=== PATIENT | male | born 1935 | race Caucasian/White ===

== ENCOUNTER 2018-12-31 16:20 | Inpatient (IN) | payer OTHER ==
[~2018-12-31] VITALS: Ht 154.9 cm; Wt 42.6 kg
[2018-12-31 16:30] VITALS: BP_SYST 123
[2018-12-31] MEDS ORDERED: SER25 PO (16:52)
[2018-12-31] MEDS ORDERED: MEMA10TA PO (16:52)
[2018-12-31] MEDS ORDERED: DIVA500T2 PO (16:52)
[2018-12-31] MEDS ORDERED: NACL 0.9% 1,000 ML IV ONE (17:04)
[2018-12-31 17:57] LABS: BASOPHILS # (AUTO) 0.1 K/uL (0.0-0.2); BASOPHILS % (AUTO) 1.5 % (0.0-2.0); EOSINOPHILS # (AUTO) 0.1 K/uL (0.0-0.4); EOSINOPHILS % (AUTO) 1.8 % (0.0-4.0); HEMATOCRIT 30.3 % (36-54); HEMOGLOBIN 9.9 g/dL (14.0-18.0); LYMPHOCYTES # (AUTO) 1.1 K/uL (1.0-5.5); LYMPHOCYTES % (AUTO) 29.7 % (20.5-51.5); MEAN CORPUSCULAR HEMOGLOBIN 31 pg (27-31); MEAN CORPUSCULAR HGB CONC 33 % (32-36); MEAN CORPUSCULAR VOLUME 95 fL (79.0-98.0); MONOCYTES # (AUTO) 0.3 K/uL (0.0-1.0); MONOCYTES % (AUTO) 7.9 % (1.7-9.3); NEUTROPHILS # (AUTO) 2.1 K/uL (1.8-7.7); NEUTROPHILS % (AUTO) 59.1 % (40.0-70.0); PLATELET COUNT (AUTO) 157 K/uL (130-430); RED BLOOD CELL COUNT(AUTO) 3.18 MIL/uL (4.2-6.2); RED CELL DISTRIBUTION WIDTH 20.7 % (9.0-15.0); WHITE BLOOD COUNT (AUTO) 3.6 K/uL (4.8-10.8)
[2018-12-31 18:05] LABS: ANION GAP 9 (5-15); CALCIUM 8.1 mg/dL (8.4-11.0); CHLORIDE 113 mmol/L (98-107); GLUCOSE 110 mg/dL (70-99); POTASSIUM 3.4 mmol/L (3.5-5.1); SODIUM SERUM 150 mmol/L (136-145); UREA NITROGEN, BLOOD 23 mg/dL (8-21)
[2018-12-31 18:12] LABS: ALBUMIN 2.9 g/dL (3.4-4.8); ASPARTATE AMINOTRANSFERASE 13 U/L (10-37); TOTAL BILIRUBIN 0.4 mg/dL (0.0-1.0)
[2018-12-31 18:37] LABS: ALANINE AMINOTRANSFERASE 6 U/L (12-78)
[2018-12-31 18:42] LABS: BILIRUBIN,URINE NEGATIVE (NEGATIVE); BLOOD, URINE NEGATIVE (NEGATIVE); CLARITY/URINE CLEAR (CLEAR); COLOR,URINE YELLOW (YELLOW); GLUCOSE,URINE NEGATIVE (NEGATIVE); KETONES,URINE TRACE (NEGATIVE); LEUKOCYTE ESTERASE ,URINE NEGATIVE (NEGATIVE); NITRITE, URINE NEGATIVE (NEGATIVE); PROTEIN URINE NEGATIVE (NEGATIVE)
[2018-12-31] MEDS: 0.45% NACL 1,000 ML IV SCH (20:43)
[2018-12-31 22:19] VITALS: BP_SYST 155
[2019-01-01 00:36] VITALS: BP_SYST 151
[2019-01-01] MEDS: 0.45% NACL 1,000 ML IV SCH ×3 (03:31→18:48)
[2019-01-01 06:31] LABS: BASOPHILS % (AUTO) 0.9 % (0.0-2.0); EOSINOPHILS # (AUTO) 0.1 K/uL (0.0-0.4); EOSINOPHILS % (AUTO) 1.1 % (0.0-4.0); HEMATOCRIT 29.5 % (36-54); HEMOGLOBIN 9.7 g/dL (14.0-18.0); LYMPHOCYTES # (AUTO) 1.5 K/uL (1.0-5.5); LYMPHOCYTES % (AUTO) 31.1 % (20.5-51.5); MEAN CORPUSCULAR HEMOGLOBIN 31 pg (27-31); MEAN CORPUSCULAR HGB CONC 33 % (32-36); MEAN CORPUSCULAR VOLUME 95 fL (79.0-98.0); MONOCYTES # (AUTO) 0.3 K/uL (0.0-1.0); NEUTROPHILS # (AUTO) 2.9 K/uL (1.8-7.7); NEUTROPHILS % (AUTO) 59.9 % (40.0-70.0); PLATELET COUNT (AUTO) 161 K/uL (130-430); RED CELL DISTRIBUTION WIDTH 20.6 % (9.0-15.0)
[2019-01-01 06:43] LABS: ANION GAP 9 (5-15); CALCIUM 7.7 mg/dL (8.4-11.0); CHLORIDE 111 mmol/L (98-107); CREATININE 0.72 mg/dL (0.55-1.30); GLUCOSE 81 mg/dL (70-99); POTASSIUM 3.5 mmol/L (3.5-5.1); SODIUM SERUM 146 mmol/L (136-145); UREA NITROGEN, BLOOD 21 mg/dL (8-21)
[2019-01-01 07:50] LABS: WHITE BLOOD COUNT (AUTO) 4.8 K/uL (4.8-10.8)
[2019-01-01 08:00] VITALS: BP_SYST 131
[2019-01-01 12:00] VITALS: BP_SYST 147
[2019-01-01] MEDS ORDERED: DILTIAZEM HCL 25 MG/5 ML VIAL IVP ONE (13:00)
[2019-01-01] MEDS ORDERED: DILTIAZEM HCL 30 MG TABLET PO ONE (14:45)
[2019-01-01 16:07] VITALS: BP_SYST 160
[2019-01-01] MEDS ORDERED: VANCOMYCIN HCL 1,000 MG in NS 250 ML IV SCH (18:00)
[2019-01-01 20:31] VITALS: BP_SYST 141
[2019-01-01] MEDS: APIXABAN 2.5 MG TABLET PO SCH (20:38)
[2019-01-01] MEDS ORDERED: VANCOMYCIN HCL 1000 MG/VIAL IV ONE (20:58)
[2019-01-01] MEDS ORDERED: PIPERACILLIN/TAZOBACTAM 3.375 GM/VIAL (ZOSYN) IV ONE (21:45)
[2019-01-01] MEDS: DILTIAZEM HCL 30 MG TABLET PO SCH (21:46)
[2019-01-01] MEDS: PIPERACILLIN/TAZO 3.375/DEX-IS 50 ML IV SCH (21:48)
[2019-01-02 00:29] VITALS: BP_SYST 163
[2019-01-02] MEDS: PIPERACILLIN/TAZO 3.375/DEX-IS 50 ML IV SCH ×3 (05:44→20:08)
[2019-01-02 05:50] VITALS: BP_SYST 154
[2019-01-02] MEDS: DILTIAZEM HCL 30 MG TABLET PO SCH ×3 (05:52→20:06)
[2019-01-02] MEDS: 0.45% NACL 1,000 ML IV SCH ×2 (05:55→20:14)
[2019-01-02 07:04] LABS: ANION GAP 9 (5-15); CALCIUM 7.6 mg/dL (8.4-11.0); CHLORIDE 108 mmol/L (98-107); CREATININE 0.84 mg/dL (0.55-1.30); GLUCOSE 83 mg/dL (70-99); POTASSIUM 3.8 mmol/L (3.5-5.1); SODIUM SERUM 142 mmol/L (136-145); UREA NITROGEN, BLOOD 24 mg/dL (8-21)
[2019-01-02 07:08] LABS: BASOPHILS % (AUTO) 0.6 % (0.0-2.0); EOSINOPHILS % (AUTO) 0.7 % (0.0-4.0); LYMPHOCYTES # (AUTO) 1.4 K/uL (1.0-5.5); LYMPHOCYTES % (AUTO) 27.5 % (20.5-51.5); MEAN CORPUSCULAR HEMOGLOBIN 32 pg (27-31); MEAN CORPUSCULAR HGB CONC 33 % (32-36); MEAN CORPUSCULAR VOLUME 95 fL (79.0-98.0); MONOCYTES # (AUTO) 0.5 K/uL (0.0-1.0); MONOCYTES % (AUTO) 8.9 % (1.7-9.3); NEUTROPHILS # (AUTO) 3.2 K/uL (1.8-7.7); NEUTROPHILS % (AUTO) 62.3 % (40.0-70.0); PLATELET COUNT (AUTO) 169 K/uL (130-430); RED BLOOD CELL COUNT(AUTO) 2.82 MIL/uL (4.2-6.2); RED CELL DISTRIBUTION WIDTH 20.3 % (9.0-15.0); WHITE BLOOD COUNT (AUTO) 5.1 K/uL (4.8-10.8)
[2019-01-02 07:41] VITALS: BP_SYST 135
[2019-01-02] MEDS: APIXABAN 2.5 MG TABLET PO SCH ×2 (09:15→20:07)
[2019-01-02 13:07] VITALS: BP_SYST 137
[2019-01-02 17:29] VITALS: BP_SYST 147
[2019-01-02 20:00] VITALS: BP_SYST 127
[2019-01-02] MEDS: EMOLLIENT COMBINATION NO.73 78 GM CREAM..G. TP SCH (20:14)
[2019-01-02] MEDS ORDERED: AMMONIUM LACTATE 12%, 400 ML LOTION TP SCH (21:00)
[2019-01-03 00:09] VITALS: BP_SYST 134
[2019-01-03 05:00] VITALS: BP_SYST 129
[2019-01-03] MEDS: DILTIAZEM HCL 30 MG TABLET PO SCH ×2 (05:35→13:44)
[2019-01-03] MEDS: PIPERACILLIN/TAZO 3.375/DEX-IS 50 ML IV SCH ×3 (05:36→21:33)
[2019-01-03 05:53] LABS: ALANINE AMINOTRANSFERASE 114 U/L (12-78); ALBUMIN 2.6 g/dL (3.4-4.8); ANION GAP 8 (5-15); ASPARTATE AMINOTRANSFERASE 187 U/L (10-37); CALCIUM 7.5 mg/dL (8.4-11.0); CHLORIDE 106 mmol/L (98-107); CREATININE 0.82 mg/dL (0.55-1.30); GLUCOSE 78 mg/dL (70-99); POTASSIUM 3.9 mmol/L (3.5-5.1); SODIUM SERUM 138 mmol/L (136-145); TOTAL BILIRUBIN 0.8 mg/dL (0.0-1.0); UREA NITROGEN, BLOOD 21 mg/dL (8-21)
[2019-01-03 06:17] LABS: BASOPHILS % (AUTO) 0.8 % (0.0-2.0); EOSINOPHILS % (AUTO) 0.6 % (0.0-4.0); HEMATOCRIT 27.7 % (36-54); HEMOGLOBIN 9.1 g/dL (14.0-18.0); LYMPHOCYTES # (AUTO) 1.7 K/uL (1.0-5.5); LYMPHOCYTES % (AUTO) 29.5 % (20.5-51.5); MEAN CORPUSCULAR HEMOGLOBIN 31 pg (27-31); MEAN CORPUSCULAR HGB CONC 33 % (32-36); MEAN CORPUSCULAR VOLUME 95 fL (79.0-98.0); MONOCYTES # (AUTO) 0.7 K/uL (0.0-1.0); MONOCYTES % (AUTO) 11.7 % (1.7-9.3); NEUTROPHILS # (AUTO) 3.3 K/uL (1.8-7.7); NEUTROPHILS % (AUTO) 57.4 % (40.0-70.0); PLATELET COUNT (AUTO) 157 K/uL (130-430); RED BLOOD CELL COUNT(AUTO) 2.92 MIL/uL (4.2-6.2); RED CELL DISTRIBUTION WIDTH 20.2 % (9.0-15.0); WHITE BLOOD COUNT (AUTO) 5.8 K/uL (4.8-10.8)
[2019-01-03 08:10] VITALS: BP_SYST 150
[2019-01-03] MEDS: VANCOMYCIN HCL 1,000 MG in NS 250 ML IV SCH (09:09)
[2019-01-03] MEDS: EMOLLIENT COMBINATION NO.73 78 GM CREAM..G. TP SCH ×2 (09:11→21:28)
[2019-01-03] MEDS: APIXABAN 2.5 MG TABLET PO SCH (09:13)
[2019-01-03] MEDS ORDERED: FUROSEMIDE 40 MG/4 ML VIAL IVP ONE (11:45)
[2019-01-03 13:03] VITALS: BP_SYST 136
[2019-01-03 16:38] VITALS: BP_SYST 157
[2019-01-03] MEDS: 0.45% NACL 1,000 ML IV SCH (17:23)
[2019-01-03 20:00] VITALS: BP_SYST 139
[2019-01-03] MEDS ORDERED: DILTIAZEM HCL 25 MG/5 ML VIAL IVP ONE (20:00)
[2019-01-03] MEDS ORDERED: DILTIAZEM HCL 25 MG/5 ML VIAL IVP PRN (21:45)
[2019-01-03] MEDS: ENOXAPARIN SODIUM 40 MG/0.4 ML SYRINGE SUBCUT SCH (23:01)
[2019-01-04 00:48] VITALS: BP_SYST 160
[2019-01-04] MEDS: PIPERACILLIN/TAZO 3.375/DEX-IS 50 ML IV SCH ×3 (05:44→23:05)
[2019-01-04 06:30] LABS: BASOPHILS # (AUTO) 0.1 K/uL (0.0-0.2); EOSINOPHILS % (AUTO) 0.9 % (0.0-4.0); HEMATOCRIT 31.5 % (36-54); HEMOGLOBIN 10.5 g/dL (14.0-18.0); LYMPHOCYTES # (AUTO) 1.3 K/uL (1.0-5.5); MEAN CORPUSCULAR HEMOGLOBIN 32 pg (27-31); MEAN CORPUSCULAR HGB CONC 33 % (32-36); MEAN CORPUSCULAR VOLUME 94 fL (79.0-98.0); MONOCYTES # (AUTO) 0.7 K/uL (0.0-1.0); MONOCYTES % (AUTO) 12.9 % (1.7-9.3); NEUTROPHILS # (AUTO) 3.3 K/uL (1.8-7.7); NEUTROPHILS % (AUTO) 61.2 % (40.0-70.0); PLATELET COUNT (AUTO) 155 K/uL (130-430); RED BLOOD CELL COUNT(AUTO) 3.34 MIL/uL (4.2-6.2); RED CELL DISTRIBUTION WIDTH 20.5 % (9.0-15.0); WHITE BLOOD COUNT (AUTO) 5.4 K/uL (4.8-10.8)
[2019-01-04 06:50] LABS: ANION GAP 14 (5-15); CALCIUM 7.8 mg/dL (8.4-11.0); CHLORIDE 105 mmol/L (98-107); CREATININE 0.77 mg/dL (0.55-1.30); GLUCOSE 72 mg/dL (70-99); POTASSIUM 3.4 mmol/L (3.5-5.1); SODIUM SERUM 142 mmol/L (136-145); UREA NITROGEN, BLOOD 22 mg/dL (8-21)
[2019-01-04 07:45] VITALS: BP_SYST 132
[2019-01-04] MEDS: FUROSEMIDE 40 MG/4 ML VIAL IVP SCH (09:42)
[2019-01-04] MEDS: EMOLLIENT COMBINATION NO.73 78 GM CREAM..G. TP SCH ×2 (10:44→21:00)
[2019-01-04 11:33] VITALS: BP_SYST 119
[2019-01-04] MEDS: 0.45% NACL 1,000 ML IV SCH (13:54)
[2019-01-04 15:54] VITALS: BP_SYST 138
[2019-01-04 20:00] VITALS: BP_SYST 129
[2019-01-04] MEDS: VANCOMYCIN HCL 1,000 MG in NS 250 ML IV SCH (20:55)
[2019-01-04] MEDS: QUEtiapine FUMARATE 25 MG TABLET PO SCH (21:34)
[2019-01-04] MEDS: ENOXAPARIN SODIUM 40 MG/0.4 ML SYRINGE SUBCUT SCH (21:35)
[2019-01-05] VITALS: BP_SYST 130
[2019-01-05] MEDS: PIPERACILLIN/TAZO 3.375/DEX-IS 50 ML IV SCH ×3 (05:39→21:11)
[2019-01-05 06:19] LABS: BASOPHILS % (AUTO) 0.4 % (0.0-2.0); EOSINOPHILS # (AUTO) 0.1 K/uL (0.0-0.4); EOSINOPHILS % (AUTO) 1.2 % (0.0-4.0); LYMPHOCYTES # (AUTO) 1.1 K/uL (1.0-5.5); LYMPHOCYTES % (AUTO) 21.5 % (20.5-51.5); MEAN CORPUSCULAR HEMOGLOBIN 31 pg (27-31); MEAN CORPUSCULAR HGB CONC 34 % (32-36); MEAN CORPUSCULAR VOLUME 93 fL (79.0-98.0); MONOCYTES # (AUTO) 0.6 K/uL (0.0-1.0); MONOCYTES % (AUTO) 12.7 % (1.7-9.3); NEUTROPHILS # (AUTO) 3.2 K/uL (1.8-7.7); NEUTROPHILS % (AUTO) 64.2 % (40.0-70.0); PLATELET COUNT (AUTO) 165 K/uL (130-430); RED BLOOD CELL COUNT(AUTO) 3.21 MIL/uL (4.2-6.2); RED CELL DISTRIBUTION WIDTH 20.2 % (9.0-15.0); WHITE BLOOD COUNT (AUTO) 4.9 K/uL (4.8-10.8)
[2019-01-05 06:22] LABS: ANION GAP 11 (5-15); CALCIUM 7.4 mg/dL (8.4-11.0); CHLORIDE 104 mmol/L (98-107); CREATININE 0.82 mg/dL (0.55-1.30); GLUCOSE 71 mg/dL (70-99); SODIUM SERUM 142 mmol/L (136-145); UREA NITROGEN, BLOOD 21 mg/dL (8-21)
[2019-01-05 08:21] VITALS: BP_SYST 130
[2019-01-05] MEDS: 0.45% NACL 1,000 ML IV SCH (08:28)
[2019-01-05] MEDS: MEMANTINE HCL 5 MG TABLET PO SCH (08:28)
[2019-01-05] MEDS: QUEtiapine FUMARATE 25 MG TABLET PO SCH ×2 (08:29→21:11)
[2019-01-05] MEDS: FUROSEMIDE 40 MG/4 ML VIAL IVP SCH (08:29)
[2019-01-05] MEDS: DIVALPROEX SODIUM 250 MG TABLET(DEPAKOTE) PO SCH ×2 (08:29→21:11)
[2019-01-05] MEDS ORDERED: DILTIAZEM HCL 25 MG/5 ML VIAL IVP PRN (08:30)
[2019-01-05] MEDS: EMOLLIENT COMBINATION NO.73 78 GM CREAM..G. TP SCH ×2 (09:54→21:21)
[2019-01-05] MEDS ORDERED: DILTIAZEM HCL 60 MG TABLET PO ONE (12:00)
[2019-01-05 12:55] VITALS: BP_SYST 119
[2019-01-05 16:30] VITALS: BP_SYST 121
[2019-01-05] MEDS: ENOXAPARIN SODIUM 40 MG/0.4 ML SYRINGE SUBCUT SCH (21:12)
[2019-01-05] MEDS: DILTIAZEM HCL 60 MG TABLET PO SCH (23:01)
[2019-01-06 00:37] VITALS: BP_SYST 110
[2019-01-06] MEDS: PIPERACILLIN/TAZO 3.375/DEX-IS 50 ML IV SCH ×3 (05:14→21:58)
[2019-01-06] MEDS: 0.45% NACL 1,000 ML IV SCH (05:14)
[2019-01-06] MEDS: DILTIAZEM HCL 60 MG TABLET PO SCH ×3 (05:15→22:00)
[2019-01-06 07:55] VITALS: BP_SYST 116
[2019-01-06] MEDS: QUEtiapine FUMARATE 25 MG TABLET PO SCH ×2 (09:59→21:58)
[2019-01-06] MEDS: MEMANTINE HCL 5 MG TABLET PO SCH (09:59)
[2019-01-06] MEDS: FUROSEMIDE 40 MG/4 ML VIAL IVP SCH (09:59)
[2019-01-06] MEDS: VANCOMYCIN HCL 1,000 MG in NS 250 ML IV SCH (09:59)
[2019-01-06] MEDS: EMOLLIENT COMBINATION NO.73 78 GM CREAM..G. TP SCH ×2 (10:00→21:00)
[2019-01-06] MEDS: DIVALPROEX SODIUM 250 MG TABLET(DEPAKOTE) PO SCH ×2 (10:00→21:59)
[2019-01-06] MEDS ORDERED: POTASSIUM CHLORIDE 10 MEQ TAB.PRT.SR PO ONE (11:15)
[2019-01-06 12:23] VITALS: BP_SYST 100
[2019-01-06 16:55] VITALS: BP_SYST 102
[2019-01-06 20:00] VITALS: BP_SYST 101
[2019-01-06] MEDS: ENOXAPARIN SODIUM 40 MG/0.4 ML SYRINGE SUBCUT SCH (22:00)
[2019-01-07] MEDS: 0.45% NACL 1,000 ML IV SCH ×2 (02:36→20:05)
[2019-01-07 02:46] VITALS: BP_SYST 122
[2019-01-07] MEDS: PIPERACILLIN/TAZO 3.375/DEX-IS 50 ML IV SCH ×3 (05:58→22:36)
[2019-01-07] MEDS: DILTIAZEM HCL 60 MG TABLET PO SCH ×3 (05:59→22:36)
[2019-01-07 06:24] LABS: BASOPHILS # (AUTO) 0.1 K/uL (0.0-0.2); BASOPHILS % (AUTO) 1.5 % (0.0-2.0); EOSINOPHILS # (AUTO) 0.1 K/uL (0.0-0.4); EOSINOPHILS % (AUTO) 2.2 % (0.0-4.0); HEMATOCRIT 27.6 % (36-54); HEMOGLOBIN 9.2 g/dL (14.0-18.0); LYMPHOCYTES # (AUTO) 1.4 K/uL (1.0-5.5); LYMPHOCYTES % (AUTO) 33.2 % (20.5-51.5); MEAN CORPUSCULAR HEMOGLOBIN 32 pg (27-31); MEAN CORPUSCULAR HGB CONC 33 % (32-36); MEAN CORPUSCULAR VOLUME 95 fL (79.0-98.0); MONOCYTES # (AUTO) 0.5 K/uL (0.0-1.0); MONOCYTES % (AUTO) 11.3 % (1.7-9.3); NEUTROPHILS # (AUTO) 2.1 K/uL (1.8-7.7); NEUTROPHILS % (AUTO) 51.8 % (40.0-70.0); PLATELET COUNT (AUTO) 161 K/uL (130-430); RED BLOOD CELL COUNT(AUTO) 2.92 MIL/uL (4.2-6.2); RED CELL DISTRIBUTION WIDTH 20.7 % (9.0-15.0); WHITE BLOOD COUNT (AUTO) 4.1 K/uL (4.8-10.8)
[2019-01-07 06:45] LABS: ALANINE AMINOTRANSFERASE 90 U/L (12-78); ALBUMIN 2.2 g/dL (3.4-4.8); ANION GAP 7 (5-15); ASPARTATE AMINOTRANSFERASE 72 U/L (10-37); CALCIUM 7.6 mg/dL (8.4-11.0); CHLORIDE 108 mmol/L (98-107); CREATININE 0.79 mg/dL (0.55-1.30); GLUCOSE 66 mg/dL (70-99); POTASSIUM 3.5 mmol/L (3.5-5.1); SODIUM SERUM 145 mmol/L (136-145); TOTAL BILIRUBIN 0.6 mg/dL (0.0-1.0); UREA NITROGEN, BLOOD 21 mg/dL (8-21)
[2019-01-07 08:00] VITALS: BP_SYST 91
[2019-01-07] MEDS: EMOLLIENT COMBINATION NO.73 78 GM CREAM..G. TP SCH ×2 (09:00→20:17)
[2019-01-07] MEDS: MEMANTINE HCL 5 MG TABLET PO SCH (10:24)
[2019-01-07] MEDS: DIVALPROEX SODIUM 250 MG TABLET(DEPAKOTE) PO SCH ×2 (10:24→20:06)
[2019-01-07] MEDS: QUEtiapine FUMARATE 25 MG TABLET PO SCH ×2 (10:24→20:06)
[2019-01-07 12:38] VITALS: BP_SYST 103
[2019-01-07 16:55] VITALS: BP_SYST 114
[2019-01-07] MEDS: FUROSEMIDE 40 MG/4 ML VIAL IVP SCH (18:28)
[2019-01-07 20:00] VITALS: BP_SYST 113
[2019-01-07] MEDS: VANCOMYCIN HCL 1,000 MG in NS 250 ML IV SCH (20:06)
[2019-01-07] MEDS: ENOXAPARIN SODIUM 40 MG/0.4 ML SYRINGE SUBCUT SCH (20:07)
[2019-01-08 01:27] VITALS: BP_SYST 141
[2019-01-08] MEDS: PIPERACILLIN/TAZO 3.375/DEX-IS 50 ML IV SCH (05:37)
[2019-01-08] MEDS: DILTIAZEM HCL 60 MG TABLET PO SCH ×3 (05:41→21:47)
[2019-01-08 07:34] LABS: ANION GAP 7 (5-15); CALCIUM 7.7 mg/dL (8.4-11.0); CHLORIDE 105 mmol/L (98-107); GLUCOSE 96 mg/dL (70-99); POTASSIUM 3.7 mmol/L (3.5-5.1); SODIUM SERUM 143 mmol/L (136-145); UREA NITROGEN, BLOOD 28 mg/dL (8-21)
[2019-01-08 07:54] LABS: HEMOGLOBIN 8.4 g/dL (14.0-18.0); MEAN CORPUSCULAR HEMOGLOBIN 32 pg (27-31); MEAN CORPUSCULAR HGB CONC 33 % (32-36); MEAN CORPUSCULAR VOLUME 95 fL (79.0-98.0); PLATELET COUNT (AUTO) 159 K/uL (130-430); RED BLOOD CELL COUNT(AUTO) 2.64 MIL/uL (4.2-6.2); RED CELL DISTRIBUTION WIDTH 20.5 % (9.0-15.0); WHITE BLOOD COUNT (AUTO) 3.8 K/uL (4.8-10.8)
[2019-01-08 08:00] VITALS: BP_SYST 95
[2019-01-08] MEDS: FUROSEMIDE 40 MG/4 ML VIAL IVP SCH (09:00)
[2019-01-08] MEDS: DIVALPROEX SODIUM 250 MG TABLET(DEPAKOTE) PO SCH ×2 (09:31→21:14)
[2019-01-08] MEDS: MEMANTINE HCL 5 MG TABLET PO SCH (09:31)
[2019-01-08] MEDS: QUEtiapine FUMARATE 25 MG TABLET PO SCH ×2 (09:31→21:13)
[2019-01-08] MEDS: EMOLLIENT COMBINATION NO.73 78 GM CREAM..G. TP SCH ×2 (09:45→21:17)
[2019-01-08 11:53] LABS: BASOPHILS % (MANUAL) 0 % (0-2); EOSINOPHILS % (MANUAL) 4 % (0-7); LYMPHOCYTES % (MANUAL) 27 % (20-46); MONOCYTES % (MANUAL) 16 % (0-11)
[2019-01-08 12:53] VITALS: BP_SYST 99
[2019-01-08] MEDS: 0.45% NACL 1,000 ML IV SCH (16:29)
[2019-01-08 16:55] VITALS: BP_SYST 115
[2019-01-08 20:44] VITALS: BP_SYST 109
[2019-01-08] MEDS ORDERED: VANCOMYCIN HCL 1,000 MG in NS 250 ML IV SCH (21:00)
[2019-01-08] MEDS: ENOXAPARIN SODIUM 40 MG/0.4 ML SYRINGE SUBCUT SCH (21:11)
[2019-01-08] MEDS: MIDODRINE HCL 5 MG TABLET (PROAMATINE) PO SCH (21:17)
[2019-01-09] VITALS: BP_SYST 101
[2019-01-09] MEDS: DILTIAZEM HCL 60 MG TABLET PO SCH ×2 (06:32→14:00)
[2019-01-09 07:07] LABS: BASOPHILS % (AUTO) 1.4 % (0.0-2.0); EOSINOPHILS # (AUTO) 0.1 K/uL (0.0-0.4); EOSINOPHILS % (AUTO) 3.2 % (0.0-4.0); HEMATOCRIT 25.8 % (36-54); HEMOGLOBIN 8.6 g/dL (14.0-18.0); LYMPHOCYTES # (AUTO) 1.1 K/uL (1.0-5.5); MEAN CORPUSCULAR HEMOGLOBIN 31 pg (27-31); MEAN CORPUSCULAR HGB CONC 33 % (32-36); MEAN CORPUSCULAR VOLUME 95 fL (79.0-98.0); MONOCYTES # (AUTO) 0.3 K/uL (0.0-1.0); MONOCYTES % (AUTO) 9.5 % (1.7-9.3); NEUTROPHILS # (AUTO) 1.9 K/uL (1.8-7.7); NEUTROPHILS % (AUTO) 54.9 % (40.0-70.0); PLATELET COUNT (AUTO) 157 K/uL (130-430); RED BLOOD CELL COUNT(AUTO) 2.72 MIL/uL (4.2-6.2); RED CELL DISTRIBUTION WIDTH 20.7 % (9.0-15.0); WHITE BLOOD COUNT (AUTO) 3.5 K/uL (4.8-10.8)
[2019-01-09 07:32] LABS: ALBUMIN 2.1 g/dL (3.4-4.8); ANION GAP 7 (5-15); CALCIUM 7.6 mg/dL (8.4-11.0); CHLORIDE 106 mmol/L (98-107); CREATININE 0.82 mg/dL (0.55-1.30); GLUCOSE 76 mg/dL (70-99); SODIUM SERUM 141 mmol/L (136-145); UREA NITROGEN, BLOOD 28 mg/dL (8-21)
[2019-01-09 08:00] VITALS: BP_SYST 95
[2019-01-09] MEDS: EMOLLIENT COMBINATION NO.73 78 GM CREAM..G. TP SCH (09:00)
[2019-01-09] MEDS: FUROSEMIDE 40 MG/4 ML VIAL IVP SCH (09:00)
[2019-01-09] MEDS: MEMANTINE HCL 5 MG TABLET PO SCH (09:02)
[2019-01-09] MEDS: MIDODRINE HCL 5 MG TABLET (PROAMATINE) PO SCH ×2 (09:03→15:22)
[2019-01-09] MEDS: DIVALPROEX SODIUM 250 MG TABLET(DEPAKOTE) PO SCH (09:03)
[2019-01-09] MEDS: QUEtiapine FUMARATE 25 MG TABLET PO SCH (09:03)
[2019-01-09 12:00] VITALS: BP_SYST 95
[2019-01-09] MEDS: 0.45% NACL 1,000 ML IV SCH (12:00)
[2019-01-09] MEDS ORDERED: LEVO750T45 PO ×2 (17:01→17:05)
[2019-01-09 17:08] VITALS: BP_SYST 104
[2019-01-09 17:11] VITALS: BP_SYST 104
[2019-01-10] MEDS ORDERED: LEVOFLOXACIN 250 MG TABLET PO SCH (10:00)
== END 2019-01-09 18:30 | DRG 871 ==
LOC: SED 16:20 → STU 19:16
PROVIDERS: ADMIT Internal Medicine; ATTEND Internal Medicine
DX: A41.9 Sepsis, unspecified organism (principal); J18.1 Lobar pneumonia, unspecified organism; E43 Unspecified severe protein-calorie malnutrition; I50.31 Acute diastolic (congestive) heart failure; E87.2 Acidosis; N17.9 Acute kidney failure, unspecified; Z68.1 Body mass index [BMI] 19.9 or less, adult; E87.0 Hyperosmolality and hypernatremia; G93.40 Encephalopathy, unspecified; I11.0 Hypertensive heart disease with heart failure; D64.9 Anemia, unspecified; F03.90 Unspecified dementia, unspecified severity, without behavioral disturbance, psychotic disturbance, mood disturbance, and anxiety; I48.91 Unspecified atrial fibrillation; L85.3 Xerosis cutis; E86.0 Dehydration; F32.9 Major depressive disorder, single episode, unspecified; L30.8 Other specified dermatitis; Z79.899 Other long term (current) drug therapy
CPT/HCPCS: 36415; 71045; 71250-TC; 80048; 80053; 80202-TC; 81003; 82040-TC; 82378; 82550-TC; 83605; 83880; 84484; 85007; 85025; 85027; 86738; 87040-TC; 87449; 93005; 96360; 99285; G0378; J1650; J1940; J2543; J3370; J3490; J7030; J7050; J7060